=== PATIENT | male | born 1970 | race Two or more races ===

== ENCOUNTER 2020-12-17 09:58 | Emergency (ER) | payer MEDICAID, OTHER ==
[~2020-12-17] VITALS: Ht 167.6 cm; Wt 65.8 kg
[2020-12-17 12:08] VITALS: BP 137/79
[2020-12-17] MEDS ORDERED: ONDANSETRON ODT 4 MG TAB PO ONE (13:45)
[2020-12-17] MEDS ORDERED: HYDROcodone-ACET 10/325MG TAB PO ONE (13:45)
== END 2020-12-17 14:26 | disposition home or self-care (01) ==
LOC: ER 09:58
DX: S82.61XA Displaced fracture of lateral malleolus of right fibula, initial encounter for closed fracture (principal); S82.391A Other fracture of lower end of right tibia, initial encounter for closed fracture; W18.39XA Other fall on same level, initial encounter; Y93.89 Activity, other specified; Y92.89 Other specified places as the place of occurrence of the external cause; Y99.8 Other external cause status
CPT/HCPCS: 29515; 73610; 99283; Q0162